=== PATIENT | female | born 1950 | race Caucasian/White ===

== ENCOUNTER 2017-08-11 09:41 | Inpatient (IN) | payer MEDICARE, BC, OTHER ==
[2017-08-11] MEDS: morphine 4 MG/ML VIAL IV ×2 (10:17→14:47)
[2017-08-11] MEDS: ONDANSETRON 4 MG INJ IV (10:17)
[2017-08-11] MEDS: SOD CHLORIDE 0.9% 1,000 ML IV (10:17)
[2017-08-11 10:24] LABS: ADD MAN DIFF? NO
[2017-08-11 10:29] LABS: WHITE BLOOD COUNT 7.8 10^3/ul (4.8-10.8)
[2017-08-11 10:29] LABS: BASOPHILS % 0.4 % (0.0-2.0); EOSINOPHILS # 0.1 10^3/ul (0.0-0.5); EOSINOPHILS % 1.2 % (0.0-7.0); HEMATOCRIT 42.2 % (37.0-47.0); HEMOGLOBIN 14.6 g/dl (12.0-16.0); LYMPHOCYTES # 0.8 10^3/ul (0.8-2.9); LYMPHOCYTES % 10.5 % (15.0-51.0); MEAN CORPUSCULAR HEMOGLOBIN 31.3 pg (29.0-33.0); MEAN CORPUSCULAR HGB CONC 34.6 g/dl (32.0-37.0); MEAN CORPUSCULAR VOLUME 90.6 fl (82.0-101.0); MONOCYTE # 0.6 10^3/ul (0.3-0.9); MONOCYTES % 7.2 % (0.0-11.0); NEUTROPHIL # 6.3 10^3/ul (1.6-7.5); NEUTROPHILS % 80.4 % (39.0-77.0); PLATELET COUNT 270 10^3/UL (140-415); RED BLOOD COUNT 4.66 10^6/ul (4.20-5.40); RED CELL DISTRIBUTION WIDTH 12.2 % (11.5-14.5)
[2017-08-11 10:38] LABS: ADD UMIC NO; UR ASCORBIC ACID NEGATIVE (NEGATIVE); UR BILIRUBIN (Dip) NEGATIVE (NEGATIVE); UR BLOOD (Dip) NEGATIVE (NEGATIVE); UR CLARITY CLEAR (CLEAR); UR COLOR STRAW (YELLOW); UR GLUCOSE (Dip) NEGATIVE (NEGATIVE); UR KETONES (Dip) TRACE mg/dL (NEGATIVE); UR LEUKOCYTE ESTERASE (Dip) NEGATIVE Leu/ul (NEGATIVE); UR NITRITE (Dip) NEGATIVE (NEGATIVE); UR SPECIFIC GRAVITY (Dip) 1.002 (1.003-1.030); UR TOTAL PROTEIN (Dip) NEGATIVE (NEGATIVE); UR UROBILINOGEN (Dip) NEGATIVE (NEGATIVE)
[2017-08-11 10:41] LABS: ALANINE AMINOTRANSFERASE 30 IU/L (13-69); ALBUMIN 4.8 g/dl (3.3-4.9); ALKALINE PHOSPHATASE 80 IU/L (42-121); ANION GAP 18 (8-16); ASPARTATE AMINO TRANSFERASE 26 IU/L (15-46); BILIRUBIN,INDIRECT 0.5 mg/dl (0-1.1); BILIRUBIN,TOTAL 0.5 mg/dl (0.2-1.3); BLOOD UREA NITROGEN 9 mg/dl (7-20); CALCIUM 9.7 mg/dl (8.4-10.2); CARBON DIOXIDE 23 mmol/L (21-31); CHLORIDE 98 mmol/L (97-110); CREATININE 0.76 mg/dl (0.44-1.00); GLUCOSE 114 mg/dl (70-220); LIPASE 137 U/L (23-300); SODIUM 135 mmol/L (135-144)
[2017-08-11 10:53] LABS: TROPONIN-I < 0.012 ng/ml (0.00-0.12)
[2017-08-11] MEDS: MECLIZINE 12.5 MG TAB PO (11:30)
[2017-08-11] MEDS: SOD CHLORIDE 0.9% 100 ML (11:37)
[2017-08-11] MEDS: IOHEXOL 100 ML (11:37)
[2017-08-11] MEDS ORDERED: ACETAMINOPHEN 325 MG TAB PO ×2 (13:30→20:30)
[2017-08-11] MEDS ORDERED: ONDANSETRON 4 MG INJ IV (13:30)
[2017-08-11] MEDS ORDERED: CEFEPIME 1GM/50 ML (PMX) 50 ML IVPB (21:00)
[2017-08-11] MEDS: CEFTRIAXONE 1 GM/50 ML (PMX) 50 ML IVPB (22:53)
[2017-08-11] MEDS: HYDROCODONE/APAP (5/325) TAB PO (22:54)
[2017-08-12] MEDS: HYDROCODONE/APAP (5/325) TAB PO ×4 (03:49→22:47)
[2017-08-12] MEDS: clonAZEPAM 0.5 MG TAB PO (08:35)
[2017-08-12] MEDS: MECLIZINE 12.5 MG TAB PO ×3 (08:36→21:30)
[2017-08-12] MEDS: VALSARTAN 80 MG TAB PO (08:36)
[2017-08-12] MEDS: KETOROLAC 15 MG INJ IV (08:36)
[2017-08-12] MEDS: ASPIRIN (EC) 81 MG TAB PO (08:36)
[2017-08-12] MEDS: ENOXAPARIN 40 MG/0.4 ML SYG SC ×2 (08:37→08:38)
[2017-08-12 08:53] LABS: ADD MAN DIFF? NO
[2017-08-12 09:00] LABS: BASOPHILS % 0.7 % (0.0-2.0); EOSINOPHILS # 0.1 10^3/ul (0.0-0.5); EOSINOPHILS % 1.2 % (0.0-7.0); HEMATOCRIT 40.5 % (37.0-47.0); HEMOGLOBIN 13.3 g/dl (12.0-16.0); LYMPHOCYTES # 0.8 10^3/ul (0.8-2.9); LYMPHOCYTES % 13.6 % (15.0-51.0); MEAN CORPUSCULAR HEMOGLOBIN 30.9 pg (29.0-33.0); MEAN CORPUSCULAR HGB CONC 32.8 g/dl (32.0-37.0); MEAN PLATELET VOLUME 9.3 fl (7.4-10.4); MONOCYTE # 0.7 10^3/ul (0.3-0.9); NEUTROPHIL # 4.1 10^3/ul (1.6-7.5); NEUTROPHILS % 72.1 % (39.0-77.0); PLATELET COUNT 222 10^3/UL (140-415); RED BLOOD COUNT 4.31 10^6/ul (4.20-5.40); RED CELL DISTRIBUTION WIDTH 12.9 % (11.5-14.5)
[2017-08-12 09:00] LABS: WHITE BLOOD COUNT 5.7 10^3/ul (4.8-10.8)
[2017-08-12] MEDS ORDERED: ASPIRIN 81 MG TAB PO (09:00)
[2017-08-12 09:14] LABS: ANION GAP 16 (8-16); BLOOD UREA NITROGEN 16 mg/dl (7-20); CALCIUM 8.7 mg/dl (8.4-10.2); CARBON DIOXIDE 23 mmol/L (21-31); CHLORIDE 103 mmol/L (97-110); CHOL/HDL RATIO 3.3 RATIO; CHOLESTEROL 212 mg/dl (100-200); CREATININE 0.88 mg/dl (0.44-1.00); GLUCOSE 75 mg/dl (70-220); HDL CHOLESTEROL 64 mg/dl (35-98); LDL CHOLESTEROL,CALCULATED 127 mg/dl; POTASSIUM 4.2 mmol/L (3.5-5.1); SODIUM 138 mmol/L (135-144); TRIGLYCERIDES 104 mg/dl (0-149)
[2017-08-12] MEDS: DIPHENHYDRAMINE 25 MG CAP PO (12:33)
[2017-08-12] MEDS: morphine 2 MG INJ IV ×2 (12:34→21:30)
[2017-08-12 15:20] LABS: FREE T4 (FREE THYROXINE) 1.03 ng/dl (0.78-2.44)
[2017-08-12 15:34] LABS: THYROID STIMULATING HORMONE 0.885 MIU/L (0.465-4.680)
[2017-08-12] MEDS: CEFTRIAXONE 1 GM/50 ML (PMX) 50 ML IVPB (21:30)
[2017-08-12] MEDS: ZOLPIDEM 5 MG TAB PO (22:48)
[2017-08-13] MEDS: morphine 2 MG INJ IV ×3 (01:49→11:22)
[2017-08-13] MEDS: clonAZEPAM 0.5 MG TAB PO ×2 (01:49→22:18)
[2017-08-13] MEDS: HYDROCODONE/APAP (5/325) TAB PO ×3 (05:42→22:18)
[2017-08-13] MEDS: VALSARTAN 80 MG TAB PO (08:21)
[2017-08-13] MEDS: BETHANECHOL 10 MG TAB PO ×3 (08:22→22:02)
[2017-08-13] MEDS: ASPIRIN (EC) 81 MG TAB PO (08:22)
[2017-08-13] MEDS: ENOXAPARIN 40 MG/0.4 ML SYG SC (08:30)
[2017-08-13 08:42] LABS: ADD MAN DIFF? NO
[2017-08-13 08:43] LABS: ABNORMAL IP MESSAGE 1; BASOPHILS % 0.7 % (0.0-2.0); EOSINOPHILS # 0.6 10^3/ul (0.0-0.5); EOSINOPHILS % 10.2 % (0.0-7.0); HEMATOCRIT 39.5 % (37.0-47.0); HEMOGLOBIN 13.1 g/dl (12.0-16.0); LYMPHOCYTES # 1.4 10^3/ul (0.8-2.9); LYMPHOCYTES % 24.9 % (15.0-51.0); MEAN CORPUSCULAR HEMOGLOBIN 31.1 pg (29.0-33.0); MEAN CORPUSCULAR HGB CONC 33.2 g/dl (32.0-37.0); MEAN CORPUSCULAR VOLUME 93.8 fl (82.0-101.0); MEAN PLATELET VOLUME 9.2 fl (7.4-10.4); MONOCYTE # 0.6 10^3/ul (0.3-0.9); MONOCYTES % 10.9 % (0.0-11.0); NEUTROPHIL # 3.1 10^3/ul (1.6-7.5); NEUTROPHILS % 53.1 % (39.0-77.0); PLATELET COUNT 218 10^3/UL (140-415); RED BLOOD COUNT 4.21 10^6/ul (4.20-5.40); RED CELL DISTRIBUTION WIDTH 12.8 % (11.5-14.5)
[2017-08-13 08:43] LABS: WHITE BLOOD COUNT 5.8 10^3/ul (4.8-10.8)
[2017-08-13 08:54] LABS: POSITIVE DIFF @See below
[2017-08-13 09:12] LABS: ANION GAP 14 (8-16); BLOOD UREA NITROGEN 17 mg/dl (7-20); CALCIUM 8.8 mg/dl (8.4-10.2); CARBON DIOXIDE 26 mmol/L (21-31); CHLORIDE 105 mmol/L (97-110); GLUCOSE 92 mg/dl (70-220); POTASSIUM 4.4 mmol/L (3.5-5.1); SODIUM 141 mmol/L (135-144)
[2017-08-13] MEDS: KETOROLAC 15 MG INJ IV ×2 (10:13→19:28)
[2017-08-13] MEDS: morphine LIQ (10 MG/5 ML) CUP PO (17:24)
[2017-08-13] MEDS: POLYETHYLENE GLYCOL 17 GM PACKET PO (22:01)
[2017-08-13] MEDS: CEFTRIAXONE 1 GM/50 ML (PMX) 50 ML IVPB (22:02)
[2017-08-14] MEDS: morphine LIQ (10 MG/5 ML) CUP PO ×2 (04:22→08:26)
[2017-08-14] MEDS: HYDROCODONE/APAP (5/325) TAB PO ×3 (06:36→22:56)
[2017-08-14 07:53] LABS: ADD MAN DIFF? NO
[2017-08-14 07:55] LABS: WHITE BLOOD COUNT 5.1 10^3/ul (4.8-10.8)
[2017-08-14 07:55] LABS: BASOPHILS % 0.4 % (0.0-2.0); EOSINOPHILS # 0.2 10^3/ul (0.0-0.5); EOSINOPHILS % 3.3 % (0.0-7.0); HEMATOCRIT 38.1 % (37.0-47.0); HEMOGLOBIN 12.5 g/dl (12.0-16.0); LYMPHOCYTES # 1.5 10^3/ul (0.8-2.9); LYMPHOCYTES % 29.9 % (15.0-51.0); MEAN CORPUSCULAR HEMOGLOBIN 31.3 pg (29.0-33.0); MEAN CORPUSCULAR HGB CONC 32.8 g/dl (32.0-37.0); MEAN CORPUSCULAR VOLUME 95.5 fl (82.0-101.0); MEAN PLATELET VOLUME 9.1 fl (7.4-10.4); MONOCYTE # 0.6 10^3/ul (0.3-0.9); MONOCYTES % 11.2 % (0.0-11.0); NEUTROPHIL # 2.8 10^3/ul (1.6-7.5); PLATELET COUNT 204 10^3/UL (140-415); RED BLOOD COUNT 3.99 10^6/ul (4.20-5.40); RED CELL DISTRIBUTION WIDTH 12.6 % (11.5-14.5)
[2017-08-14 08:16] LABS: ANION GAP 15 (8-16); BLOOD UREA NITROGEN 24 mg/dl (7-20); CALCIUM 8.4 mg/dl (8.4-10.2); CARBON DIOXIDE 25 mmol/L (21-31); CHLORIDE 106 mmol/L (97-110); CREATININE 0.78 mg/dl (0.44-1.00); GLUCOSE 98 mg/dl (70-220); POTASSIUM 4.5 mmol/L (3.5-5.1); SODIUM 141 mmol/L (135-144)
[2017-08-14] MEDS: BETHANECHOL 10 MG TAB PO ×3 (08:18→20:54)
[2017-08-14] MEDS: VALSARTAN 80 MG TAB PO (08:19)
[2017-08-14] MEDS: ASPIRIN (EC) 81 MG TAB PO (08:19)
[2017-08-14] MEDS: POLYETHYLENE GLYCOL 17 GM PACKET PO ×2 (08:20→20:55)
[2017-08-14] MEDS: ENOXAPARIN 40 MG/0.4 ML SYG SC (08:25)
[2017-08-14] MEDS: KETOROLAC 15 MG INJ IV ×2 (10:52→16:57)
[2017-08-14] MEDS: AMPICILLIN 1 GM/NS (PMX) 50 ML IVPB (20:53)
[2017-08-14] MEDS: clonAZEPAM 0.5 MG TAB PO (20:54)
[2017-08-14] MEDS: PREGABALIN 50 MG CAP PO (20:54)
[2017-08-14] MEDS: CEFTRIAXONE 1 GM/50 ML (PMX) 50 ML IVPB (22:49)
[2017-08-14] MEDS: ZOLPIDEM 5 MG TAB PO (22:56)
[2017-08-15] MEDS ORDERED: AMPICILLIN 500 MG in SOD CHLORIDE 0.9% 50 ML IVPB
[2017-08-15] MEDS: AMPICILLIN 1 GM/NS (PMX) 50 ML IVPB ×2 (01:04→05:47)
[2017-08-15] MEDS: KETOROLAC 15 MG INJ IV ×2 (04:56→17:40)
[2017-08-15 05:57] LABS: ADD MAN DIFF? NO
[2017-08-15 05:59] LABS: WHITE BLOOD COUNT 4.6 10^3/ul (4.8-10.8)
[2017-08-15 06:00] LABS: BASOPHILS % 0.6 % (0.0-2.0); EOSINOPHILS # 0.3 10^3/ul (0.0-0.5); EOSINOPHILS % 5.6 % (0.0-7.0); HEMATOCRIT 37.7 % (37.0-47.0); HEMOGLOBIN 12.5 g/dl (12.0-16.0); LYMPHOCYTES # 0.8 10^3/ul (0.8-2.9); LYMPHOCYTES % 17.9 % (15.0-51.0); MEAN CORPUSCULAR HEMOGLOBIN 31.3 pg (29.0-33.0); MEAN CORPUSCULAR HGB CONC 33.2 g/dl (32.0-37.0); MEAN CORPUSCULAR VOLUME 94.3 fl (82.0-101.0); MEAN PLATELET VOLUME 9.4 fl (7.4-10.4); MONOCYTE # 0.4 10^3/ul (0.3-0.9); MONOCYTES % 8.4 % (0.0-11.0); NEUTROPHIL # 3.1 10^3/ul (1.6-7.5); NEUTROPHILS % 67.1 % (39.0-77.0); PLATELET COUNT 195 10^3/UL (140-415); RED CELL DISTRIBUTION WIDTH 12.9 % (11.5-14.5)
[2017-08-15] MEDS: HYDROCODONE/APAP (5/325) TAB PO ×3 (06:31→19:50)
[2017-08-15 06:42] LABS: ANION GAP 15 (8-16); BLOOD UREA NITROGEN 19 mg/dl (7-20); CALCIUM 8.6 mg/dl (8.4-10.2); CARBON DIOXIDE 24 mmol/L (21-31); CHLORIDE 104 mmol/L (97-110); GLUCOSE 89 mg/dl (70-220); POTASSIUM 4.3 mmol/L (3.5-5.1); SODIUM 139 mmol/L (135-144)
[2017-08-15] MEDS: VALSARTAN 80 MG TAB PO (08:37)
[2017-08-15] MEDS: POLYETHYLENE GLYCOL 17 GM PACKET PO ×2 (08:38→21:00)
[2017-08-15] MEDS: ASPIRIN (EC) 81 MG TAB PO (08:39)
[2017-08-15] MEDS: BETHANECHOL 10 MG TAB PO ×3 (08:39→21:02)
[2017-08-15] MEDS: ENOXAPARIN 40 MG/0.4 ML SYG SC (08:43)
[2017-08-15] MEDS: morphine LIQ (10 MG/5 ML) CUP PO ×2 (09:21→15:47)
[2017-08-15] MEDS: clonAZEPAM 0.5 MG TAB PO (15:42)
[2017-08-15] MEDS: CIPROFLOXACIN 500 MG TAB PO (17:39)
[2017-08-15] MEDS: PREGABALIN 50 MG CAP PO (21:02)
[2017-08-16] MEDS: KETOROLAC 15 MG INJ IV (01:18)
[2017-08-16] MEDS: ZOLPIDEM 5 MG TAB PO (02:45)
[2017-08-16] MEDS: CIPROFLOXACIN 500 MG TAB PO ×2 (05:44→18:29)
[2017-08-16 06:09] LABS: ADD MAN DIFF? NO
[2017-08-16 06:12] LABS: BASOPHILS % 0.5 % (0.0-2.0); EOSINOPHILS # 0.2 10^3/ul (0.0-0.5); EOSINOPHILS % 5.2 % (0.0-7.0); HEMATOCRIT 38.4 % (37.0-47.0); HEMOGLOBIN 12.8 g/dl (12.0-16.0); LYMPHOCYTES # 1.1 10^3/ul (0.8-2.9); LYMPHOCYTES % 27.6 % (15.0-51.0); MEAN CORPUSCULAR HEMOGLOBIN 31.1 pg (29.0-33.0); MEAN CORPUSCULAR HGB CONC 33.3 g/dl (32.0-37.0); MEAN CORPUSCULAR VOLUME 93.2 fl (82.0-101.0); MEAN PLATELET VOLUME 9.1 fl (7.4-10.4); MONOCYTE # 0.5 10^3/ul (0.3-0.9); MONOCYTES % 12.4 % (0.0-11.0); NEUTROPHIL # 2.1 10^3/ul (1.6-7.5); PLATELET COUNT 184 10^3/UL (140-415); RED BLOOD COUNT 4.12 10^6/ul (4.20-5.40); RED CELL DISTRIBUTION WIDTH 12.5 % (11.5-14.5)
[2017-08-16 06:12] LABS: WHITE BLOOD COUNT 3.9 10^3/ul (4.8-10.8)
[2017-08-16 06:38] LABS: ANION GAP 12 (8-16); BLOOD UREA NITROGEN 18 mg/dl (7-20); CALCIUM 8.6 mg/dl (8.4-10.2); CARBON DIOXIDE 28 mmol/L (21-31); CHLORIDE 104 mmol/L (97-110); CREATININE 0.71 mg/dl (0.44-1.00); GLUCOSE 88 mg/dl (70-220); POTASSIUM 4.2 mmol/L (3.5-5.1); SODIUM 140 mmol/L (135-144)
[2017-08-16] MEDS: HYDROCODONE/APAP (5/325) TAB PO ×3 (07:05→21:31)
[2017-08-16] MEDS: POLYETHYLENE GLYCOL 17 GM PACKET PO ×2 (09:00→20:08)
[2017-08-16] MEDS: ASPIRIN (EC) 81 MG TAB PO (09:41)
[2017-08-16] MEDS: VALSARTAN 80 MG TAB PO (09:41)
[2017-08-16] MEDS: BETHANECHOL 10 MG TAB PO ×3 (09:41→20:08)
[2017-08-16] MEDS: ENOXAPARIN 40 MG/0.4 ML SYG SC (09:42)
[2017-08-16] MEDS: morphine LIQ (10 MG/5 ML) CUP PO (11:16)
[2017-08-16] MEDS: PREGABALIN 50 MG CAP PO (20:08)
[2017-08-16] MEDS: clonAZEPAM 0.5 MG TAB PO (20:08)
[2017-08-17] MEDS: ZOLPIDEM 5 MG TAB PO (02:47)
[2017-08-17] MEDS: CIPROFLOXACIN 500 MG TAB PO ×2 (06:33→18:12)
[2017-08-17 06:34] LABS: WHITE BLOOD COUNT 4.1 10^3/ul (4.8-10.8)
[2017-08-17 06:34] LABS: ADD MAN DIFF? NO; BASOPHILS % 0.5 % (0.0-2.0); EOSINOPHILS # 0.2 10^3/ul (0.0-0.5); EOSINOPHILS % 4.4 % (0.0-7.0); HEMATOCRIT 39.3 % (37.0-47.0); HEMOGLOBIN 12.9 g/dl (12.0-16.0); LYMPHOCYTES # 1.7 10^3/ul (0.8-2.9); LYMPHOCYTES % 42.4 % (15.0-51.0); MEAN CORPUSCULAR HEMOGLOBIN 30.8 pg (29.0-33.0); MEAN CORPUSCULAR HGB CONC 32.8 g/dl (32.0-37.0); MEAN CORPUSCULAR VOLUME 93.8 fl (82.0-101.0); MEAN PLATELET VOLUME 8.8 fl (7.4-10.4); MONOCYTE # 0.5 10^3/ul (0.3-0.9); MONOCYTES % 12.7 % (0.0-11.0); NEUTROPHIL # 1.6 10^3/ul (1.6-7.5); NEUTROPHILS % 39.8 % (39.0-77.0); PLATELET COUNT 183 10^3/UL (140-415); RED BLOOD COUNT 4.19 10^6/ul (4.20-5.40); RED CELL DISTRIBUTION WIDTH 12.6 % (11.5-14.5)
[2017-08-17 06:55] LABS: ANION GAP 13 (8-16); BLOOD UREA NITROGEN 17 mg/dl (7-20); CALCIUM 8.8 mg/dl (8.4-10.2); CARBON DIOXIDE 29 mmol/L (21-31); CHLORIDE 104 mmol/L (97-110); GLUCOSE 89 mg/dl (70-220); POTASSIUM 4.2 mmol/L (3.5-5.1); SODIUM 142 mmol/L (135-144)
[2017-08-17] MEDS: HYDROCODONE/APAP (5/325) TAB PO ×3 (07:03→22:45)
[2017-08-17] MEDS: POLYETHYLENE GLYCOL 17 GM PACKET PO ×2 (09:00→21:00)
[2017-08-17] MEDS: ASPIRIN (EC) 81 MG TAB PO (09:02)
[2017-08-17] MEDS: VALSARTAN 80 MG TAB PO (09:03)
[2017-08-17] MEDS: BETHANECHOL 10 MG TAB PO ×3 (09:03→22:42)
[2017-08-17] MEDS: ENOXAPARIN 40 MG/0.4 ML SYG SC (09:06)
[2017-08-17] MEDS: morphine LIQ (10 MG/5 ML) CUP PO (09:35)
[2017-08-17] MEDS: clonAZEPAM 0.5 MG TAB PO (14:33)
[2017-08-17] MEDS: PREGABALIN 50 MG CAP PO (22:16)
[2017-08-18] MEDS: HYDROCODONE/APAP (5/325) TAB PO ×3 (04:38→18:23)
[2017-08-18] MEDS: CIPROFLOXACIN 500 MG TAB PO ×2 (05:36→17:44)
[2017-08-18 06:11] LABS: ADD MAN DIFF? NO
[2017-08-18 06:46] LABS: ANION GAP 17 (8-16); BLOOD UREA NITROGEN 14 mg/dl (7-20); CALCIUM 9.2 mg/dl (8.4-10.2); CARBON DIOXIDE 29 mmol/L (21-31); CHLORIDE 102 mmol/L (97-110); CREATININE 0.76 mg/dl (0.44-1.00); GLUCOSE 90 mg/dl (70-220); SODIUM 144 mmol/L (135-144)
[2017-08-18 07:13] LABS: WHITE BLOOD COUNT 5.3 10^3/ul (4.8-10.8)
[2017-08-18 07:13] LABS: BASOPHILS % 0.4 % (0.0-2.0); EOSINOPHILS # 0.2 10^3/ul (0.0-0.5); EOSINOPHILS % 3.2 % (0.0-7.0); HEMOGLOBIN 13.6 g/dl (12.0-16.0); LYMPHOCYTES # 2.1 10^3/ul (0.8-2.9); MEAN CORPUSCULAR HEMOGLOBIN 30.6 pg (29.0-33.0); MEAN CORPUSCULAR HGB CONC 32.4 g/dl (32.0-37.0); MEAN CORPUSCULAR VOLUME 94.6 fl (82.0-101.0); MEAN PLATELET VOLUME 9.4 fl (7.4-10.4); MONOCYTE # 0.5 10^3/ul (0.3-0.9); MONOCYTES % 8.8 % (0.0-11.0); NEUTROPHIL # 2.6 10^3/ul (1.6-7.5); NEUTROPHILS % 48.4 % (39.0-77.0); PLATELET COUNT 220 10^3/UL (140-415); RED BLOOD COUNT 4.44 10^6/ul (4.20-5.40); RED CELL DISTRIBUTION WIDTH 12.4 % (11.5-14.5)
[2017-08-18] MEDS: morphine LIQ (10 MG/5 ML) CUP PO (07:14)
[2017-08-18] MEDS: POLYETHYLENE GLYCOL 17 GM PACKET PO ×3 (09:00→21:13)
[2017-08-18] MEDS: morphine 2 MG INJ IV ×2 (09:49→14:32)
[2017-08-18] MEDS: ENOXAPARIN 40 MG/0.4 ML SYG SC (10:50)
[2017-08-18] MEDS: ASPIRIN (EC) 81 MG TAB PO (10:51)
[2017-08-18] MEDS: BETHANECHOL 10 MG TAB PO ×3 (10:51→21:13)
[2017-08-18] MEDS: VALSARTAN 80 MG TAB PO (10:52)
[2017-08-18] MEDS: BARIUM SULF 2% 450 ML BTL (BERRY SMOOTHIE) PO (10:53)
[2017-08-18] MEDS: PREGABALIN 50 MG CAP PO (21:13)
[2017-08-18] MEDS: clonAZEPAM 0.5 MG TAB PO (22:56)
[2017-08-19] MEDS: CIPROFLOXACIN 500 MG TAB PO ×2 (05:21→18:01)
[2017-08-19] MEDS: HYDROCODONE/APAP (5/325) TAB PO ×3 (05:46→15:05)
[2017-08-19 06:08] LABS: ADD MAN DIFF? NO
[2017-08-19 06:15] LABS: BASOPHILS % 0.6 % (0.0-2.0); EOSINOPHILS # 0.3 10^3/ul (0.0-0.5); HEMATOCRIT 38.7 % (37.0-47.0); HEMOGLOBIN 12.5 g/dl (12.0-16.0); LYMPHOCYTES # 1.9 10^3/ul (0.8-2.9); LYMPHOCYTES % 34.7 % (15.0-51.0); MEAN CORPUSCULAR HEMOGLOBIN 30.5 pg (29.0-33.0); MEAN CORPUSCULAR HGB CONC 32.3 g/dl (32.0-37.0); MEAN CORPUSCULAR VOLUME 94.4 fl (82.0-101.0); MEAN PLATELET VOLUME 9.1 fl (7.4-10.4); MONOCYTE # 0.5 10^3/ul (0.3-0.9); MONOCYTES % 9.8 % (0.0-11.0); NEUTROPHIL # 2.7 10^3/ul (1.6-7.5); NEUTROPHILS % 49.5 % (39.0-77.0); PLATELET COUNT 218 10^3/UL (140-415); RED CELL DISTRIBUTION WIDTH 12.4 % (11.5-14.5)
[2017-08-19 06:15] LABS: WHITE BLOOD COUNT 5.4 10^3/ul (4.8-10.8)
[2017-08-19 06:33] LABS: ALANINE AMINOTRANSFERASE 32 IU/L (13-69); ALBUMIN 4.1 g/dl (3.3-4.9); ALBUMIN/GLOBULIN RATIO 1.57; ALKALINE PHOSPHATASE 61 IU/L (42-121); ANION GAP 16 (8-16); ASPARTATE AMINO TRANSFERASE 24 IU/L (15-46); BLOOD UREA NITROGEN 17 mg/dl (7-20); CARBON DIOXIDE 27 mmol/L (21-31); CHLORIDE 103 mmol/L (97-110); CREATININE 0.85 mg/dl (0.44-1.00); GLUCOSE 95 mg/dl (70-220); POTASSIUM 4.1 mmol/L (3.5-5.1); SODIUM 142 mmol/L (135-144); TOTAL PROTEIN 6.7 g/dl (6.1-8.1)
[2017-08-19] MEDS: POLYETHYLENE GLYCOL 17 GM PACKET PO ×2 (09:00→20:19)
[2017-08-19] MEDS: BETHANECHOL 10 MG TAB PO ×3 (09:00→20:19)
[2017-08-19] MEDS: ASPIRIN (EC) 81 MG TAB PO (09:00)
[2017-08-19] MEDS: morphine 2 MG INJ IV ×2 (09:00→12:52)
[2017-08-19] MEDS: VALSARTAN 80 MG TAB PO (09:00)
[2017-08-19] MEDS: ENOXAPARIN 40 MG/0.4 ML SYG SC (09:04)
[2017-08-19] MEDS: PREGABALIN 50 MG CAP PO (20:19)
[2017-08-19] MEDS: ZOLPIDEM 5 MG TAB PO (20:19)
[2017-08-20] MEDS: HYDROCODONE/APAP (5/325) TAB PO ×3 (04:06→13:10)
[2017-08-20 06:01] LABS: ADD MAN DIFF? NO
[2017-08-20 06:16] LABS: WHITE BLOOD COUNT 5.8 10^3/ul (4.8-10.8)
[2017-08-20 06:16] LABS: BASOPHILS % 0.3 % (0.0-2.0); EOSINOPHILS # 0.3 10^3/ul (0.0-0.5); EOSINOPHILS % 4.8 % (0.0-7.0); HEMATOCRIT 37.7 % (37.0-47.0); HEMOGLOBIN 12.5 g/dl (12.0-16.0); LYMPHOCYTES # 1.8 10^3/ul (0.8-2.9); LYMPHOCYTES % 31.5 % (15.0-51.0); MEAN CORPUSCULAR HEMOGLOBIN 30.9 pg (29.0-33.0); MEAN CORPUSCULAR HGB CONC 33.2 g/dl (32.0-37.0); MEAN CORPUSCULAR VOLUME 93.1 fl (82.0-101.0); MEAN PLATELET VOLUME 9.1 fl (7.4-10.4); MONOCYTE # 0.6 10^3/ul (0.3-0.9); NEUTROPHIL # 3.1 10^3/ul (1.6-7.5); NEUTROPHILS % 52.9 % (39.0-77.0); PLATELET COUNT 218 10^3/UL (140-415); RED BLOOD COUNT 4.05 10^6/ul (4.20-5.40); RED CELL DISTRIBUTION WIDTH 12.5 % (11.5-14.5)
[2017-08-20] MEDS: CIPROFLOXACIN 500 MG TAB PO ×2 (06:37→18:33)
[2017-08-20 06:39] LABS: ANION GAP 13 (8-16); BLOOD UREA NITROGEN 12 mg/dl (7-20); CARBON DIOXIDE 28 mmol/L (21-31); CHLORIDE 105 mmol/L (97-110); CREATININE 0.79 mg/dl (0.44-1.00); GLUCOSE 93 mg/dl (70-220); POTASSIUM 4.6 mmol/L (3.5-5.1); SODIUM 141 mmol/L (135-144)
[2017-08-20] MEDS: morphine 2 MG INJ IV ×2 (06:50→14:45)
[2017-08-20] MEDS: VALSARTAN 80 MG TAB PO (09:00)
[2017-08-20] MEDS: POLYETHYLENE GLYCOL 17 GM PACKET PO ×2 (09:00→21:00)
[2017-08-20] MEDS: ASPIRIN (EC) 81 MG TAB PO (09:00)
[2017-08-20] MEDS: BETHANECHOL 10 MG TAB PO ×3 (09:00→21:02)
[2017-08-20] MEDS: ENOXAPARIN 40 MG/0.4 ML SYG SC (09:01)
[2017-08-20] MEDS: clonAZEPAM 0.5 MG TAB PO (11:30)
[2017-08-20] MEDS ORDERED: morphine LIQ (10 MG/5 ML) CUP PO (15:30)
[2017-08-20] MEDS: PREGABALIN 50 MG CAP PO (21:02)
[2017-08-20] MEDS: ZOLPIDEM 5 MG TAB PO (21:03)
[2017-08-21] MEDS: CIPROFLOXACIN 500 MG TAB PO (05:08)
[2017-08-21] MEDS: HYDROCODONE/APAP (5/325) TAB PO ×2 (05:08→10:40)
[2017-08-21] MEDS: morphine 2 MG INJ IV ×2 (08:08→13:27)
[2017-08-21] MEDS: BETHANECHOL 10 MG TAB PO ×2 (08:53→12:22)
[2017-08-21] MEDS: ASPIRIN (EC) 81 MG TAB PO (08:53)
[2017-08-21] MEDS: POLYETHYLENE GLYCOL 17 GM PACKET PO (08:54)
[2017-08-21] MEDS: VALSARTAN 80 MG TAB PO (08:54)
[2017-08-21] MEDS: ENOXAPARIN 40 MG/0.4 ML SYG SC (08:55)
== END 2017-08-21 14:10 | disposition home or self-care (01) | DRG 696 ==
LOC: MS2 08-15 12:50 → E/R 09:41 → MS2 08-14 22:06 → TEL 13:14
DX: R33.9 Retention of urine, unspecified (principal); N39.0 Urinary tract infection, site not specified; I50.22 Chronic systolic (congestive) heart failure; B02.29 Other postherpetic nervous system involvement; E86.0 Dehydration; R42 Dizziness and giddiness; I11.0 Hypertensive heart disease with heart failure; F41.9 Anxiety disorder, unspecified; L29.9 Pruritus, unspecified; R30.0 Dysuria; R55 Syncope and collapse; K44.9 Diaphragmatic hernia without obstruction or gangrene; I70.0 Atherosclerosis of aorta; Z86.79 Personal history of other diseases of the circulatory system; Z79.82 Long term (current) use of aspirin
CPT/HCPCS: 36415; 70450; 71100; 71275; 74018; 74176; 76705; 76775; 80048; 80053; 80061; 81003; 83690; 84439; 84443; 84484; 85025; 87086; 93005; 93306; 93880; 95819; 96374; 96375; 96376; 99217; 99285-25; G0378

== ENCOUNTER 2018-10-28 13:17 | Emergency (ER) | payer MEDICARE, BC, OTHER ==
[2018-10-28 13:50] LABS: ADD MAN DIFF? NO
[2018-10-28 13:54] LABS: WHITE BLOOD COUNT 9.5 10^3/ul (4.8-10.8)
[2018-10-28 13:54] LABS: BASOPHIL # 0.1 10^3/ul (0.0-0.1); BASOPHILS % 0.7 % (0.0-2.0); EOSINOPHILS % 0.4 % (0.0-7.0); HEMOGLOBIN 13.9 g/dl (12.0-16.0); LYMPHOCYTES # 1.6 10^3/ul (0.8-2.9); LYMPHOCYTES % 16.7 % (15.0-51.0); MEAN CORPUSCULAR HEMOGLOBIN 31.5 pg (29.0-33.0); MEAN CORPUSCULAR HGB CONC 33.9 g/dl (32.0-37.0); MEAN PLATELET VOLUME 9.2 fl (7.4-10.4); MONOCYTE # 0.5 10^3/ul (0.3-0.9); MONOCYTES % 4.8 % (0.0-11.0); NEUTROPHIL # 7.3 10^3/ul (1.6-7.5); PLATELET COUNT 271 10^3/UL (140-415); RED BLOOD COUNT 4.41 10^6/ul (4.20-5.40); RED CELL DISTRIBUTION WIDTH 12.4 % (11.5-14.5)
[2018-10-28] MEDS: ONDANSETRON 4 MG INJ IV (13:54)
[2018-10-28] MEDS: morphine 2 MG INJ IV (13:54)
[2018-10-28 14:14] LABS: ALANINE AMINOTRANSFERASE 23 IU/L (13-69); ALBUMIN 4.5 g/dl (3.3-4.9); ALKALINE PHOSPHATASE 94 IU/L (42-121); ANION GAP 10 (5-13); ASPARTATE AMINO TRANSFERASE 25 IU/L (15-46); BILIRUBIN,INDIRECT 0.5 mg/dl (0-1.1); BILIRUBIN,TOTAL 0.5 mg/dl (0.2-1.3); BLOOD UREA NITROGEN 13 mg/dl (7-20); CALCIUM 9.8 mg/dl (8.4-10.2); CARBON DIOXIDE 24 mmol/L (21-31); CHLORIDE 104 mmol/L (97-110); CREATININE 0.73 mg/dl (0.44-1.00); Estimated GFR > 60 mL/min (>60); GLUCOSE 127 mg/dl (70-220); LIPASE 135 U/L (23-300); POTASSIUM 3.7 mmol/L (3.5-5.1); SODIUM 138 mmol/L (135-144); TOTAL PROTEIN 7.7 g/dl (6.1-8.1)
[2018-10-28 14:18] LABS: URINE BLOOD (Dip) POC Negative (NEGATIVE); URINE GLUCOSE (Dip) POC Negative (NEGATIVE); URINE KETONES (Dip) POC Negative (NEGATIVE); URINE LEUKOCYTE EST (Dip) POC Negative (NEGATIVE); URINE NITRITE (Dip) POC Negative (NEGATIVE); URINE TOTAL PROTEIN POC Negative (NEGATIVE)
[2018-10-28] MEDS: KETOROLAC 15 MG INJ IV ×2 (15:27→17:57)
== END 2018-10-28 18:21 | disposition home or self-care (01) ==
LOC: E/R 18:21
DX: R10.9 Unspecified abdominal pain (principal); I11.0 Hypertensive heart disease with heart failure; I50.9 Heart failure, unspecified; R33.9 Retention of urine, unspecified; R40.2142 Coma scale, eyes open, spontaneous, at arrival to emergency department; R40.2362 Coma scale, best motor response, obeys commands, at arrival to emergency department; R40.2252 Coma scale, best verbal response, oriented, at arrival to emergency department; Z79.82 Long term (current) use of aspirin; Z87.891 Personal history of nicotine dependence
CPT/HCPCS: 36415; 71045; 74176; 76705; 80053; 81003; 83690; 85025; 96374; 96375; 96376; 99285-25

== ENCOUNTER 2019-01-05 06:31 | Emergency (ER) | payer MEDICARE, BC, OTHER ==
[2019-01-05] MEDS: SOD CHLORIDE 0.9% 1,000 ML IV (06:55)
[2019-01-05] MEDS: ONDANSETRON 4 MG INJ IV (06:56)
[2019-01-05] MEDS: DIAZEPAM 5 MG/ML SYG IV (06:56)
[2019-01-05] MEDS: morphine 4 MG/ML VIAL IV (06:56)
[2019-01-05 07:04] LABS: ADD MAN DIFF? NO
[2019-01-05 07:09] LABS: BASOPHIL # 0.1 10^3/ul (0.0-0.1); BASOPHILS % 0.8 % (0.0-2.0); EOSINOPHILS # 0.4 10^3/ul (0.0-0.5); EOSINOPHILS % 5.9 % (0.0-7.0); HEMATOCRIT 41.6 % (37.0-47.0); HEMOGLOBIN 13.3 g/dl (12.0-16.0); LYMPHOCYTES # 1.6 10^3/ul (0.8-2.9); LYMPHOCYTES % 26.8 % (15.0-51.0); MEAN CORPUSCULAR HEMOGLOBIN 30.6 pg (29.0-33.0); MEAN CORPUSCULAR VOLUME 95.6 fl (82.0-101.0); MEAN PLATELET VOLUME 9.3 fl (7.4-10.4); MONOCYTE # 0.6 10^3/ul (0.3-0.9); MONOCYTES % 9.2 % (0.0-11.0); NEUTROPHIL # 3.4 10^3/ul (1.6-7.5); PLATELET COUNT 269 10^3/UL (140-415); RED BLOOD COUNT 4.35 10^6/ul (4.20-5.40); RED CELL DISTRIBUTION WIDTH 12.9 % (11.5-14.5)
[2019-01-05 07:32] LABS: ALANINE AMINOTRANSFERASE 27 IU/L (13-69); ALBUMIN 4.1 g/dl (3.3-4.9); ALBUMIN/GLOBULIN RATIO 1.46; ALKALINE PHOSPHATASE 72 IU/L (42-121); ANION GAP 9 (5-13); ASPARTATE AMINO TRANSFERASE 25 IU/L (15-46); BILIRUBIN,INDIRECT 0.5 mg/dl (0-1.1); BILIRUBIN,TOTAL 0.5 mg/dl (0.2-1.3); BLOOD UREA NITROGEN 19 mg/dl (7-20); CALCIUM 9.5 mg/dl (8.4-10.2); CARBON DIOXIDE 25 mmol/L (21-31); CHLORIDE 105 mmol/L (97-110); CREATININE 0.65 mg/dl (0.44-1.00); Estimated GFR > 60 mL/min (>60); GLUCOSE 122 mg/dl (70-220); LIPASE 117 U/L (23-300); POTASSIUM 3.4 mmol/L (3.5-5.1); SODIUM 139 mmol/L (135-144); TOTAL PROTEIN 6.9 g/dl (6.1-8.1)
[2019-01-05] MEDS: HALOPERIDOL 5 MG INJ IV (08:17)
[2019-01-05 08:31] LABS: ADD UMIC NO; UR ASCORBIC ACID NEGATIVE (NEGATIVE); UR BILIRUBIN (Dip) NEGATIVE (NEGATIVE); UR BLOOD (Dip) NEGATIVE (NEGATIVE); UR CLARITY CLEAR (CLEAR); UR COLOR STRAW (YELLOW); UR GLUCOSE (Dip) NEGATIVE (NEGATIVE); UR KETONES (Dip) NEGATIVE (NEGATIVE); UR LEUKOCYTE ESTERASE (Dip) NEGATIVE Leu/ul (NEGATIVE); UR NITRITE (Dip) NEGATIVE (NEGATIVE); UR SPECIFIC GRAVITY (Dip) 1.006 (1.003-1.030); UR TOTAL PROTEIN (Dip) NEGATIVE (NEGATIVE); UR UROBILINOGEN (Dip) NEGATIVE (NEGATIVE)
== END 2019-01-05 10:57 | disposition home or self-care (01) ==
LOC: E/R 06:31
DX: R10.9 Unspecified abdominal pain (principal); I10 Essential (primary) hypertension; Z87.891 Personal history of nicotine dependence; Z79.82 Long term (current) use of aspirin
CPT/HCPCS: 36415; 72100; 74176; 80053; 81003; 83690; 85025; 96361; 96374; 96375; 99285-25